=== PATIENT | female | born 1935 | race African-American/Black ===

== ENCOUNTER 2016-11-04 14:47 | Emergency (ER) | payer MEDICAID, OTHER ==
[~2016-11-04 14:47] MED LIST: ASPI325T4 PO; CELE200C PO; CLIN300C86 PO; FERR325T58 PO; FLUT9.9S NS; GLIP10TA13 PO; GLIP5TAB10 PO; HYDR-2762 PO; IPRA4AER IH; LISI1TAB3 PO; LISI1TAB5 PO; LISI1TAB7 PO; PIOG30TA3 PO; SIMV40TA3 PO; TRAM50TA PO; WARF3TAB PO; WARF5TAB PO
--- NOTE | 2016-11-04 15:15 | PHYS DOC ---
Past Medical History Past Medical History: Arthritis, Bronchitis, COPD, Diabetes-Type II, High Cholesterol, Hypertension Past Surgical History: Appendectomy, Hysterectomy, Knee Replacement Additional Past Surgical Histo: BILAT BREAST BIOPSY, BILAT KNEE REPAIR,PARTIAL THYROID,HERNIA Alcohol Use: None Drug Use: None Adult General Chief Complaint Chief Complaint: HYPOGLYCEMIA HPI HPI Patient is a 81 year old female who presents with hypoglycemia. Patient reports she was feeling weak this morning, so she checked her blood glucose level, which was 30. EMS was called; after drinking some juice blood glucose had increased to 50 for EMS, and is 70 at [facility]. Patient says she is feeling fine now with no complaints; she is no longer feeling weak. She says she took her usual DM med this morning (glipizide and pioglitazone) but did not eat breakfast. Review of Systems Review of Systems Constitutional: Generalized weakness (now resolved). Denies fever or chills Eyes: Denies change in visual acuity or eye pain HENT: Denies nasal congestion or sore throat Respiratory: Denies cough or shortness of breath Cardiovascular: Denies chest pain GI: Denies abdominal pain, nausea, vomiting, bloody stools or diarrhea : Denies dysuria or hematuria Musculoskeletal: Denies back pain or joint pain Integument: Denies rash or skin lesions Neurologic: Denies headache, focal weakness or sensory changes Allergies Allergies Allergies Coded Allergies Type Severity Reaction Last Updated Verified Penicillins Allergy Intermediate Rash 06/29/15 Yes Physical Exam Physical Exam Constitutional: Well developed, well nourished, no acute distress, non-toxic appearance HENT: Normocephalic, atraumatic, bilateral external ears normal Eyes: EOMI, conjunctiva normal, no discharge Neck: Normal range of motion, no stridor Cardiovascular: Heart rate normal, regular rhythm, no murmur Lungs & Thorax: Bilateral breath sounds clear to auscultation Abdomen: Bowel sounds normal, soft, non-distended, no TTP Skin: Warm, dry, no erythema, no rash Extremities: No obvious deformity, no edema Neurologic: Alert and oriented X 3, no gross deficits noted Current Patient Data Vital Signs Vital Signs Date Time Temp Pulse Resp B/P Pulse Ox O2 Delivery O2 Flow Rate FiO2 11/04/16 17:22 87 16 196/84 11/04/16 15:01 97.9 94 Room Air 97.9 EKG EKG [] Radiology/Procedures Radiology/Procedures [] Course & Med Decision Making Course & Med Decision Making Pertinent Labs and Imaging studies reviewed. (See chart for details) Patient is 81 year old female who presents with hypoglycemia. Apparently related to taking oral diabetes medication without eating this morning. Blood glucose steadily increasing since EMS arrival. Patient asymptomatic at this time. Will check basic labs. Patient provided with food and juice in ED. After multiple attempts to draw blood and start IV, patient has now refused any further IV sticks. We came to agreement that we would not stick her any more as long as she remained asymptomatic and her blood glucose did not drop again. After multiple finger sticks the level has continued to go up, 163 at last check. Patient continues to feel well and would like to go home now. I gave patient and her daughter instructions for her to continue to check her finger stick this evening and tonight, and to return to ED if she drops again. Also discussed need to be sure she is eating after taking her DM meds. Patient agreeable with plan. Given instructions for follow up with PCP to discuss DM meds and strict return precautions. Discharged home. Dragon Disclaimer Dragon Disclaimer This electronic medical record was generated, in whole or in part, using a voice recognition dictation system. Departure Departure Impression: Primary Impression: Hypoglycemia Disposition: HOME, SELF-CARE Condition: IMPROVED Referrals: RENZO MEADOWS MD (PCP) Patient Instructions: Hypoglycemia (Low Blood Sugar) Additional Instructions: Thank you for allowing us to provide care today in the Emergency Department. Be sure that you are eating like you are supposed to when taking your diabetes medication. Your blood sugar level can drop dangerously low if you take your medication and do not eat enough. Recheck your blood glucose level at least two more times before you go to bed tonight. If you drop low again, return immediately to the Emergency Department. Schedule a follow up appointment with your primary care doctor to discuss your diabetes medications. Return promptly to the Emergency Department if you develop any new or concerning symptoms. ARTI CAMPBELL MD Nov 04, 2016 15:15
[2016-11-04 17:22] VITALS: BP 196/84
== END 2016-11-04 17:20 | disposition home or self-care (01) ==
LOC: ER 14:47
DX: E11.649 Type 2 diabetes mellitus with hypoglycemia without coma (principal); J44.9 Chronic obstructive pulmonary disease, unspecified; I10 Essential (primary) hypertension; E78.00 Pure hypercholesterolemia, unspecified; Z88.0 Allergy status to penicillin; Z79.899 Other long term (current) drug therapy
CPT/HCPCS: 82947; 99283

== ENCOUNTER → 2016-11-23 | Outpatient (CLI) | payer MEDICAID ==
[2016-11-04 17:22] VITALS: BP 196/84
--- NOTE | 2016-11-23 17:45 | RAD ---
EXAM: DIGITAL SCREEN BILAT W/CAD HISTORY: Routine Screening. COMPARISON: 04/06/2015 Standard mammographic views are obtained of the bilateral breasts. This study was interpreted with the benefit of Computerized Aided Detection (CAD). FINDINGS: The breast parenchyma shows scattered fibroglandular densities. Breast parenchyma level II. There is no definite new suspicious spiculated mass or worrisome new cluster of microcalcifications. Scattered benign-appearing calcifications again seen. IMPRESSION: No definite new suspicious mass. BI-RADS CATEGORY: 2 BENIGN FINDING RECOMMENDED FOLLOW-UP: 12M 12 MONTH FOLLOW-UP PQRS compliance statement: Patient information was entered into a reminder system with a target due date for the next mammogram. Mammography is a sensitive method for finding small breast cancers, but it does not detect them all and is not a substitute for careful clinical examination. A negative mammogram does not negate a clinically suspicious finding and should not result in delay in biopsying a clinically suspicious abnormality. "Our facility is accredited by the [employer] Mammography Program."
== END | disposition home or self-care (01) ==
LOC: MAMMO 14:32
PROVIDERS: ATTEND Family Medicine
DX: Z12.31 Encounter for screening mammogram for malignant neoplasm of breast (principal)
CPT/HCPCS: G0202; 77067

== ENCOUNTER → 2016-12-14 | Outpatient (CLI) | payer MEDICARE, OTHER ==
--- NOTE | 2016-12-14 16:33 | KCIC ---
Examination: Three views of the bilateral hands. HISTORY History of arthritis, stiffness, swelling. COMPARISON None available. FINDINGS Left hand: The alignment of the carpal bones grossly appears unremarkable. Mild degenerative changes 1st carpometacarpal joint and 1st metacarpophalangeal joint. There is no acute fracture dislocation identified.Mild DJD changes ideal in the DIP joints. Right hand: There is mild degenerative changes identified in the 1st carpometacarpal and 1st metacarpophalangeal joint. Mild joint space loss identified in the DIP joints of the digits likely due to degeneration. IMPRESSION Degenerative changes bilateral 1st carpometacarpal joint and metacarpophalangeal joint and the DIP joints. Electronically signed by: Kadeem Carroll (Dec 14, 2016 16:32:39)
== END | disposition home or self-care (01) ==
LOC: KCIC 13:35
PROVIDERS: ATTEND Family Medicine
DX: M25.542 Pain in joints of left hand (principal); M25.541 Pain in joints of right hand
CPT/HCPCS: 73130

== ENCOUNTER → 2017-06-05 | Outpatient (CLI) | payer MEDICARE, OTHER ==
[~2017-06-05] MED LIST changes: -ASPI325T4 PO; +ASPI325T8 PO; +CLIN300C8 PO; -CLIN300C86 PO; +WARF-78 PO; -WARF3TAB PO; +WARF3TAB54 PO; -WARF5TAB PO
--- NOTE | 2017-06-05 11:23 | KCIC ---
CHEST PA LATERAL History: Productive cough for 2 months, pain in ribs and abdomen due to coughing Comparison: None available Findings: Pericardial cardiac silhouette is somewhat enlarged. There is tortuous thoracic aorta, atherosclerotic calcification near arch. There is mild interstitial opacity bilaterally, no lobar consolidation. There is suspected emphysema. Impression: 1. There is no lobar consolidation. 2. There is suspected emphysema. 3. Pericardial cardiac silhouette is somewhat enlarged. There is mild interstitial opacity of uncertain chronicity, mild interstitial edema not excluded. Electronically signed by: Colin Caceres MD (06/05/2017 11:20 AM) [id number]
== END | disposition home or self-care (01) ==
LOC: KCIC 09:41
PROVIDERS: ATTEND Family Medicine
DX: R91.8 Other nonspecific abnormal finding of lung field (principal); R05 Cough
CPT/HCPCS: 71020

== ENCOUNTER → 2017-12-17 | Outpatient (CLI) | payer OTHER | END | disposition home or self-care (01) | LOC: MAMMO 14:15 | DX: Z12.31 Encounter for screening mammogram for malignant neoplasm of breast (principal) | CPT/HCPCS: 77063; 77067 ==

== ENCOUNTER → 2018-02-14 | Outpatient (CLI) | payer OTHER | END | disposition home or self-care (01) | LOC: PMGWOUND 10:35 | DX: E11.622 Type 2 diabetes mellitus with other skin ulcer (principal); L98.491 Non-pressure chronic ulcer of skin of other sites limited to breakdown of skin; M06.9 Rheumatoid arthritis, unspecified; K21.9 Gastro-esophageal reflux disease without esophagitis; E78.00 Pure hypercholesterolemia, unspecified; I25.10 Atherosclerotic heart disease of native coronary artery without angina pectoris; E11.36 Type 2 diabetes mellitus with diabetic cataract; I11.0 Hypertensive heart disease with heart failure; I50.9 Heart failure, unspecified; J44.9 Chronic obstructive pulmonary disease, unspecified; Z87.891 Personal history of nicotine dependence; Z90.710 Acquired absence of both cervix and uterus; Z96.652 Presence of left artificial knee joint | CPT/HCPCS: 99215 ==

== ENCOUNTER → 2018-12-26 | Outpatient (CLI) | payer OTHER ==
[~2018-12-26] MED LIST changes: -HYDR-2762 PO; +HYDR-2765 PO; -PIOG30TA3 PO; +PIOG30TA62 PO
--- NOTE | 2018-12-26 15:06 | RAD ---
DATE: 12/26/2018 EXAM: MAMMO RYAN SCREENING BILATERAL HISTORY: Routine screening. COMPARISON: Previous mammogram from 2018 and 2017. This study was interpreted with the benefit of Computerized Aided Detection (CAD). FINDINGS: Breast Density: SCATTERED The breast parenchyma shows scattered fibroglandular densities. Breast parenchyma level B. The skin and nipples are within normal limits. No suspicious calcifications, spiculated mass or area of architectural distortion. Stable bilateral nodular appearance of the breast parenchyma is seen. IMPRESSION: No mammographic evidence of malignancy. Stable mammogram. BI-RADS CATEGORY: 2 BENIGN FINDING(S) RECOMMENDED FOLLOW-UP: 12M 12 MONTH FOLLOW-UP PQRS compliance statement: Patient information was entered into a reminder system with a target due date for the next mammogram. Mammography is a sensitive method for finding small breast cancers, but it does not detect them all and is not a substitute for careful clinical examination. A negative mammogram does not negate a clinically suspicious finding and should not result in delay in biopsying a clinically suspicious abnormality. "Our facility is accredited by the [employer] Mammography Program."
== END | disposition home or self-care (01) ==
LOC: MAMMO 14:06
PROVIDERS: ATTEND Family Medicine
DX: Z12.31 Encounter for screening mammogram for malignant neoplasm of breast (principal)
CPT/HCPCS: 77063; 77067

== ENCOUNTER → 2019-01-10 | Outpatient (CLI) | payer OTHER ==
--- NOTE | 2019-01-10 14:11 | KCIC ---
ABDOMEN COMPLETE History: Abdominal pain Comparison: None. Findings: Multiple sonographic images of the abdomen are submitted. Pancreas is poorly visualized. There is visualization of the pancreatic duct measuring up to about 0.27 cm. Abdominal aortic caliber is within normal limits up to 2.1 cm., Scattered calcified plaque of the abdominal aorta. There is segmental visualization of the inferior vena cava. There is coarsening of the hepatic echotexture. Right lobe of the liver measured 14.5 cm longitudinal. Common bile duct measures 0.8 cm, considered within normal limits given the patient's age. Gallbladder is present without intraluminal abnormality, wall thickening, pericholecystic fluid. Right kidney measured 10.5 x 3.7 x 6 cm, no hydronephrosis. Left kidney measured 10 x 4.2 x 3.8 cm, no hydronephrosis. Spleen measured about 11 cm, poorly seen due to bowel gas. Impression: 1. Common bile duct caliber can be considered within normal limits for the patient's age. There is nonspecific visualization of the pancreatic duct, pancreas poorly seen due to bowel gas. There is likely hepatic steatosis. Electronically signed by: Colin Caceres MD (01/10/2019 2:09 PM) [id number]
== END | disposition home or self-care (01) ==
LOC: KCIC US 09:56
PROVIDERS: ATTEND Family Medicine
DX: I70.0 Atherosclerosis of aorta (principal)
CPT/HCPCS: 76700

== ENCOUNTER 2020-05-16 18:41 | Emergency (ER) | payer OTHER, MEDICAID ==
[~2020-05-16] VITALS: Ht 160 cm; Wt 84.6 kg
[~2020-05-16 18:41] MED LIST changes: +LISI1TAB20 PO; +LISI1TAB23 PO; -LISI1TAB3 PO; +LISI1TAB37 PO; -LISI1TAB5 PO; -LISI1TAB7 PO; +SIMV40TA18 PO; -SIMV40TA3 PO; -WARF-78 PO; +WARF5TAB2 PO
--- NOTE | 2020-05-16 19:36 | PHYS DOC ---
Past Medical History Past Medical History: Arthritis, Bronchitis, COPD, Diabetes-Type II, High Cholesterol, Hypertension Past Surgical History: Appendectomy, Hysterectomy, Knee Replacement Additional Past Surgical Histo: BILAT BREAST BIOPSY, BILAT KNEE REPAIR,PARTIAL THYROID,HERNIA Smoking Status: Former Smoker Alcohol Use: None Drug Use: None General Adult EDM: Chief Complaint: HYPOGLYCEMIA HPI: HPI: Patient is a 84 year old female who presents with complaints of "I want to be here". Patient was brought by EMS upon the insistence of her daughter who is not her power of managing attorney. Patient states that her daughter thought that she needed to come to the hospital because her blood sugar was 55 although she was alert and asymptomatic. EMS was called and the patient arrives here alert and oriented. Patient denies any specific complaints including chest pain, shortness of breath, fever or chills, nausea or vomiting, melena or hematochezia, abdominal pain or back pain. She really at this time stated that she wanted to go home. She was tired of her daughter meddling in her life and was quite upset at her daughter. Review of Systems: Review of Systems: Constitutional: Denies fever or chills. [] Eyes: Denies change in visual acuity. [] HENT: Denies nasal congestion or sore throat. [] Respiratory: Denies cough or shortness of breath. [] Cardiovascular: Denies chest pain or edema. [] GI: Denies abdominal pain, nausea, vomiting, bloody stools or diarrhea. [] : Denies dysuria. [] Musculoskeletal: Denies back pain or joint pain. [] Integument: Denies rash. [] Neurologic: Denies headache, focal weakness or sensory changes. [] [] Heart Score: Risk Factors: Risk Factors: DM, Current or recent (<one month) smoker, HTN, HLP, family history of CAD, obesity. Risk Scores: Score 0 - 3: 2.5% MACE over next 6 weeks - Discharge Home Score 4 - 6: 20.3% MACE over next 6 weeks - Admit for Clinical Observation Score 7 - 10: 72.7% MACE over next 6 weeks - Early Invasive Strategies Allergies: Allergies: Allergies Coded Allergies Type Severity Reaction Last Updated Verified Penicillins Allergy Intermediate Rash 06/29/15 Yes Physical Exam: PE: Constitutional: Well developed, well nourished, no acute distress, non-toxic appearance. [] HENT: Normocephalic, atraumatic, bilateral external ears normal, oropharynx moist, no oral exudates, nose normal. [] Eyes: PERRLA, EOMI, conjunctiva normal, no discharge. [] Neck: Normal range of motion, no tenderness, supple, no stridor. [] Cardiovascular:Heart rate regular rhythm, grade 1/6 systolic murmur, no shift of PMI, pulses 1 out of 2 the dorsalis pedis bilateral [] Lungs & Thorax: Bilateral breath sounds clear to auscultation [] Abdomen: Bowel sounds normal, soft, no tenderness, no masses, no pulsatile masses. [] Skin: Warm, dry, no erythema, no rash. [] Back: No tenderness, no CVA tenderness. [] Extremities: No tenderness, no cyanosis, mild clubbing, ROM intact, 1 mm pitting edema bilaterally [] Neurologic: Alert and oriented X 3, normal motor function, normal sensory function, no focal deficits noted. NIHSS equals 0 [] Psychologic: Affect normal, judgement normal, mood normal. [] Current Patient Data: Labs: Laboratory Tests Test 05/16/20 18:47 Glucose (Fingerstick) 64 mg/dL (70-99) L Vital Signs: Vital Signs Date Time Temp Pulse Resp B/P (MAP) Pulse Ox O2 Delivery O2 Flow Rate FiO2 05/16/20 18:53 98.2 91 18 143/72 (95) 95 Room Air 98.2 EKG: EKG: [] Radiology/Procedures: Radiology/Procedures: [] Course & Med Decision Making: Course & Med Decision Making Pertinent Labs and Imaging studies reviewed. (See chart for details) 1932-the patient was seen and examined. I discussed with the patient her options including no intervention and going home, letting us check her blood sugar and give her something to eat, or IV, blood work urine and observation. At this time the patient was kind enough to let us check her blood sugar give her something to eat but refused IV or blood draws. We did recheck her blood sugar and is now 105 after some food. Given the fact that she is alert and oriented with no neurological deficits I think she is free to go home per her wishes. I discussed with her the reasons to return, need for follow-up and treatment plan [] Negro Royimer: Negro Disclaimer: This electronic medical record was generated, in whole or in part, using a voice recognition dictation system. Departure Departure Impression: Primary Impression: Hypoglycemia Disposition: 01 HOME, SELF-CARE Condition: IMPROVED Referrals: RENZO MEADOWS MD (PCP) Patient Instructions: Hypoglycemia (Low Blood Sugar) Justicifation of Admission Dx: Justifications for Admission: Justification of Admission Dx: N/A KOLBY WELSH MD May 16, 2020 19:35
[2020-05-16 20:13] VITALS: BP 153/78
== END 2020-05-16 20:16 | disposition home or self-care (01) ==
LOC: ER 18:41
DX: E11.649 Type 2 diabetes mellitus with hypoglycemia without coma (principal); J44.9 Chronic obstructive pulmonary disease, unspecified; E78.00 Pure hypercholesterolemia, unspecified; I10 Essential (primary) hypertension; Z87.891 Personal history of nicotine dependence; Z90.89 Acquired absence of other organs; Z90.49 Acquired absence of other specified parts of digestive tract; Z88.0 Allergy status to penicillin
CPT/HCPCS: 82962; 99283

== ENCOUNTER → 2020-06-21 | Outpatient (CLI) | payer OTHER, MEDICAID ==
[~2020-06-21] MED LIST changes: +CONTRAST GIVEN. MC PRN; +IOHEXOL 240 MG/ML 50ML VIAL. PO ONE
--- NOTE | 2020-06-21 15:11 | KCIC ---
EXAM: CT Abdomen and Pelvis without IV contrast INDICATION: Reason: ABDOMINAL PAIN, WEIGHT LOSS 30 LBS IN 2 MONTHS / Spl. Instructions: ORAL CONTRAST ONLY PER DR. TANNER, CREATININE 2.1 GFR 25 / History: TECHNIQUE: Multi-detector row CT images were acquired from the lung bases through the abdomen and pelvis without the use of IV contrast. Sagittal and coronal images were acquired from the transaxial data. All CT scans performed at this facility utilize dose optimization techniques as appropriate to the exam, including the following: Automated exposure control and adjustment of the mA and/or KV according to patient size (this includes techniques or standardized protocols for targeted exams where dose is indication/reason for exam). ORAL CONTRAST: None COMPARISON: Abdominal ultrasound of 01/10/2019 FINDINGS: The absence of IV contrast limits evaluation of soft tissue pathology. LOWER CHEST: Small hiatal hernia. LIVER: Unremarkable BILIARY SYSTEM: Gallbladder is unremarkable. Bile ducts are not dilated. PANCREAS: Unremarkable SPLEEN: Unremarkable ADRENALS: Unremarkable KIDNEYS & URETERS: Unremarkable BLADDER: Collapsed. Otherwise unremarkable. REPRODUCTIVE ORGANS: Unremarkable GASTROINTESTINAL: Rectosigmoid colon shows collapse and consequent prominence of the bowel wall without pericolonic soft tissue stranding. There are multiple colonic diverticuli without overt findings of acute diverticulitis. There is mild soft tissue stranding in the right upper quadrant abdominal mesentery (image 22 of 68, series 2). Stomach, small bowel, and colon are otherwise unremarkable. The appendix is not well seen but there are no findings of acute appendicitis.. MESENTERY/PERITONEUM/RETROPERITONEUM: Unremarkable VASCULAR: There is narrowing of the IVC in the right upper quadrant abdomen (image 23 of series 2). There are extensive aortic calcifications without evidence of aneurysmal dilation. LYMPH NODES: No adenopathy OSSEOUS & SOFT TISSUES: Right iliopsoas intramuscular lipoma. Multilevel lumbar spinal degenerative spondylosis. IMPRESSION: Subtle findings of mesenteric stranding in the right upper quadrant, incompletely evaluated on noncontrast abdomen pelvis CT. Duodenitis is suspected. If IV contrast for CT is contraindicated or otherwise cannot be administered, consider abdominal MRI without (and possibly also with) IV contrast.. Electronically signed by: Angel William MD (06/21/2020 3:08 PM) [id number]
== END ==
LOC: KCIC CT 08:30
PROVIDERS: ATTEND Family Medicine
DX: K44.9 Diaphragmatic hernia without obstruction or gangrene (principal); M47.816 Spondylosis without myelopathy or radiculopathy, lumbar region; D17.79 Benign lipomatous neoplasm of other sites
CPT/HCPCS: 74176; 82565; Q9966

== ENCOUNTER → 2020-08-19 | Outpatient (CLI) | payer OTHER, MEDICAID ==
[~2020-08-19] MED LIST changes: +AMIT25TA PO; +BENZ200C47 PO; -CONTRAST GIVEN. MC PRN; +DICL100G54 TP; +FLUT100D IH; +FURO-68 PO; +GLYC10.7 IH; +HYDR-2761 PO; -IOHEXOL 240 MG/ML 50ML VIAL. PO ONE
[2020-08-19 13:56] LABS: BASO # 0.1 x10^3/uL (0.0-0.2); BASO % 1 % (0-3); EOS # 0.3 x10^3/uL (0.0-0.7); EOS % 5 % (0-3); HEMATOCRIT 34.8 % (36.0-47.0); HEMOGLOBIN 11.4 g/dL (12.0-15.5); LYMPH # 1.9 x10^3/uL (1.0-4.8); LYMPH % 34 % (24-48); MEAN CORPUSCULAR HEMOGLOBIN 28 pg (25-35); MEAN CORPUSCULAR HGB CONC 33 g/dL (31-37); MEAN CORPUSCULAR VOLUME 87 fL (79-100); MONO # 0.5 x10^3/uL (0.0-1.1); MONO % 8 % (0-9); NEUT # 2.8 x10^3/uL (1.8-7.7); NEUT % 51 % (31-73); PLATELET COUNT 204 x10^3/uL (140-400); WHITE BLOOD COUNT 5.5 x10^3/uL (4.0-11.0)
[2020-08-19 14:06] LABS: GFR 28.8; POTASSIUM 4.4 mmol/L (3.5-5.1)
--- NOTE | 2020-08-19 14:23 | EKG ---
[facility] [address] [place] [address] Test Date: 2020-08-19 Test Time: 14:56:32 Pat Name: KATHY WHITMORE Department: Room: Gender: F Workforce Analyst: AMADA : 1935 Requested By: COLLEEN JAMES Order Number: [id number] Reading MD: Dustin Miranda Measurements Intervals [place] Rate: 68 P: 90 AK: 160 QRS: 26 QRSD: 68 T: 14 QT: 408 QTc: 434 Interpretive Statements SINUS RHYTHM RI6.02 Compared to ECG 06/07/2015 14:07:54 No significant changes Electronically Signed On 08-21-2020 15:33:46 [employer] by Dustin Miranda
== END ==
LOC: SURGPAT 13:02
PROVIDERS: ATTEND Orthopaedic Surgery
DX: Z01.818 Encounter for other preprocedural examination (principal); G56.01 Carpal tunnel syndrome, right upper limb; Z20.828 Contact with and (suspected) exposure to other viral communicable diseases
CPT/HCPCS: 80048; 85025; 93005; U0003

== ENCOUNTER 2020-08-24 07:54 | Day surgery (SDC) | payer OTHER, MEDICAID ==
[~2020-08-24] VITALS: Ht 162.6 cm; Wt 84.4 kg
[~2020-08-24 07:54] MED LIST changes: +CLINDAMYCIN 900MG PREMIX 50 ML IV PRN; -HYDR-2761 PO; +HYDROmorphone 2 MG/ML VIAL IV PRN; +IV RINGERS,LACTATED 1000ML 1,000 ML IV SCH; +MORPHINE SULFATE 2 MG/ML VIAL. IV PRN; +ONDANSETRON PF 4 MG/2 ML VIAL. IV PRN; +PROCHLORPERAZINE 10 MG/2 ML VIAL. IV PRN; +fentaNYL PF VIAL 100 MCG/2 ML VIAL IV PRN
--- NOTE | 2020-08-24 08:59 | DISCH ---
DISCHARGE INSTRUCTIONS Condition on Discharge Condition on Discharge: Stable Activity After Discharge Activity Instructions for Disc: Other, see below (Avoid hard grasp with ope rative hand but can do fine motor use such as eating writing typing) Bathing Instructions: Shower-keep dressing dry, No Tub Bath until see Lifting Instructions after Dis: No heavy lifting Diet after Discharge Diet after Discharge: Regular Diet Texture: Regular Wound Incision Care Wound/Incision Care: Keep wound elevated, Do not change dressing (Keep dressing clean and dry change only if soiled) Checks after Discharge Checks after discharge: Check blood sugar, ac/hs Contacting the [facility] after DC Call your doctor for: Concerns you may have Follow-Up Follow up with: Dr. Lazo 10 days Treatment/Equipment after DC Adaptive Equipment Issued: COLLEEN Salcido MD Aug 24, 2020 08:59
[2020-08-24] MEDS ORDERED: BUPIVACAINE MPF 0.25% 30 ML VIAL. ONE (09:27)
[2020-08-24] MEDS ORDERED: INSULIN LISPRO 100 UNIT/ML 3ML VIAL for OP,RR ONLY. SQ PRN (09:30)
[2020-08-24] MEDS ORDERED: PROPOFOL 10 MG/ML (20ML) VIAL. IV ONE (09:31)
[2020-08-24] MEDS ORDERED: fentaNYL PF VIAL 100 MCG/2 ML VIAL ONE ×2 (09:31→10:46)
[2020-08-24] MEDS ORDERED: MIDAZOLAM HCL/PF 2 MG/2 ML VIAL. ONE (09:31)
[2020-08-24] MEDS ORDERED: LIDOCAINE 2% PF 5 ML VIAL. ONE (09:31)
[2020-08-24] MEDS ORDERED: SEVOFLURANE 61 TO 120 MINUTES. IH ONE (10:08)
[2020-08-24] MEDS ORDERED: DEXAMETHASONE SOD PHOS 4 MG/ML VIAL ONE (10:08)
[2020-08-24] MEDS ORDERED: ONDANSETRON PF 4 MG/2 ML VIAL. ONE (10:08)
[2020-08-24] MEDS ORDERED: PHENYLEPHRINE in 0.9% NACL PF 1 MG/10 ML SYRINGE. IV ONE (10:24)
[2020-08-24] MEDS ORDERED: HYDROcodone/APAP 5/325MG 1 TAB TABLET PO ONE (10:45)
[2020-08-24] MEDS: fentaNYL PF VIAL 100 MCG/2 ML VIAL IV PRN ×2 (10:49→11:03)
[2020-08-24] MEDS ORDERED: HYDR-2761 PO (10:58)
--- NOTE | 2020-08-24 11:01 | PDOC4 ---
Operative Note Operative Note Date of surgery: 08/24/2020 Preoperative diagnosis: Right carpal tunnel syndrome Postoperative diagnosis: Same with moderate median nerve compression Operative procedure: Right carpal tunnel release Surgeon: Clifton Anesthesia: General Estimated blood loss: 1 cc Complications: None Operative indications: Please see my dictated orthopedic consultation for detailed operative indications and note that she does have EMG confirmed symptomatic carpal tunnel in the right hand. We had talked through the risks benefits postoperative course including possibility of incisional tenderness incomplete relief infection nerve or blood vessel damage medical or other anesthetic complications among others. She had asked about whether I can tighten up the skin on the back of her hand where it is wrinkly and I told her that that would not be a procedure that I performed or would be considered today. She agrees to proceed with surgical evaluation and treatment. Operative text: Patient was identified procedure verified patient placed in the supine position on the operating table. After adequate amounts of general anesthesia were administered the right upper extremity was prepped and draped in standard sterile fashion. After timeout was performed patient procedure identified and verified a longitudinal incision was made just distal to the distal wrist crease. Dissection carried out down to the transverse carpal ligament which was divided sharply under direct vision with a scalpel and divided proximally and distally through its entire length with a blunt pair of tenotomy scissors. No synovitis was noted in the carpal tunnel and tendons were intact. The median nerve was noted to have moderate compression and the recurrent branch identified intact. Irrigation carried out normal saline solution and a total of 12 cc of half percent plain Marcaine were instilled around the incision site and closure accomplished with 3-0 nylon suture in a vertical mattress fashion. Sterile soft dressings were applied, patient was returned to recovery room in stable condition having tolerated procedure well COLLEEN JAMES MD Aug 24, 2020 11:01
[2020-08-24 11:40] VITALS: BP 160/70
== END 2020-08-24 12:05 | disposition home or self-care (01) ==
LOC: SURG 07:54
PROVIDERS: ATTEND Orthopaedic Surgery
DX: G56.01 Carpal tunnel syndrome, right upper limb (principal); I25.10 Atherosclerotic heart disease of native coronary artery without angina pectoris; I10 Essential (primary) hypertension; E78.00 Pure hypercholesterolemia, unspecified; K21.9 Gastro-esophageal reflux disease without esophagitis; G47.30 Sleep apnea, unspecified; E66.9 Obesity, unspecified; M19.90 Unspecified osteoarthritis, unspecified site; E13.42 Other specified diabetes mellitus with diabetic polyneuropathy; J44.9 Chronic obstructive pulmonary disease, unspecified; Z90.710 Acquired absence of both cervix and uterus; Z98.890 Other specified postprocedural states; Z79.82 Long term (current) use of aspirin; Z79.84 Long term (current) use of oral hypoglycemic drugs; Z79.899 Other long term (current) drug therapy; Z87.891 Personal history of nicotine dependence; Z88.0 Allergy status to penicillin; Z88.8 Allergy status to other drugs, medicaments and biological substances
CPT/HCPCS: 64721; 82962; A7015; J1100; J2370; J2405; J2704; J3010; J3490; J2250

== ENCOUNTER → 2020-12-06 | Outpatient (CLI) | payer OTHER, MEDICAID ==
[~2020-12-06] MED LIST changes: -CLIN300C8 PO; +CLIN300C9 PO; -CLINDAMYCIN 900MG PREMIX 50 ML IV PRN; +ESOM40CA PO; -FLUT100D IH; +FLUT100D2 IH; +HYDR-2761 PO; -HYDROmorphone 2 MG/ML VIAL IV PRN; -IV RINGERS,LACTATED 1000ML 1,000 ML IV SCH; -MORPHINE SULFATE 2 MG/ML VIAL. IV PRN; -ONDANSETRON PF 4 MG/2 ML VIAL. IV PRN; -PROCHLORPERAZINE 10 MG/2 ML VIAL. IV PRN; -fentaNYL PF VIAL 100 MCG/2 ML VIAL IV PRN
== END ==
LOC: LAB 08:37
PROVIDERS: ATTEND Internal Medicine Gastroenterology
DX: Z01.812 Encounter for preprocedural laboratory examination (principal); R10.9 Unspecified abdominal pain; Z20.822 Contact with and (suspected) exposure to COVID-19
CPT/HCPCS: U0003

== ENCOUNTER → 2020-12-08 | Day surgery (SDC) | payer OTHER, MEDICAID ==
[~2020-12-08] MED LIST changes: +IV RINGERS,LACTATED 1000ML 1,000 ML IV SCH; +PROPOFOL 10 MG/ML (20ML) VIAL. IV ONE
[2020-12-08 08:55] VITALS: BP 132/74
== END | disposition home or self-care (01) ==
LOC: ENDOS 06:25
PROVIDERS: ATTEND Internal Medicine Gastroenterology
DX: R63.4 Abnormal weight loss (principal); R10.13 Epigastric pain; K29.40 Chronic atrophic gastritis without bleeding; R10.84 Generalized abdominal pain; K57.30 Diverticulosis of large intestine without perforation or abscess without bleeding; K64.0 First degree hemorrhoids; E11.42 Type 2 diabetes mellitus with diabetic polyneuropathy; E78.00 Pure hypercholesterolemia, unspecified; I10 Essential (primary) hypertension; I25.10 Atherosclerotic heart disease of native coronary artery without angina pectoris; K21.9 Gastro-esophageal reflux disease without esophagitis; J44.9 Chronic obstructive pulmonary disease, unspecified; G47.30 Sleep apnea, unspecified; M19.90 Unspecified osteoarthritis, unspecified site; Z90.710 Acquired absence of both cervix and uterus; Z98.890 Other specified postprocedural states; Z79.899 Other long term (current) drug therapy; Z79.82 Long term (current) use of aspirin; Z79.84 Long term (current) use of oral hypoglycemic drugs; Z87.891 Personal history of nicotine dependence; Z88.0 Allergy status to penicillin; Z88.8 Allergy status to other drugs, medicaments and biological substances
CPT/HCPCS: 43235; 45378; J2704